=== PATIENT | male | born 1960 | race Caucasian/White ===

== ENCOUNTER 2021-06-30 11:55 | Emergency (ER) | payer OTHER ==
[~2021-06-30 11:55] MED LIST: ALDACTONE25 MG PO; CARVEDILOL12.5 MG PO; CRESTOR40 MG PO; LASIX20 MG PO; PRINIVIL20 MG PO; WARFARIN SODIUM5 MG PO
[2021-06-30 13:18] LABS: BASOPHIL 0.5 % (0-2); HCT 43.5 % (42.0-52.0); HGB 14.8 g/dl (13.2-18.0); LYMPHOCYTE 19.2 % (15-48); MCH 33.9 pg (25.0-31.0); MCV 99.8 fL (78.0-100.0); MONOCYTE 15.6 % (0-12); MPV 9.8 fL (6.0-9.5); NEUTROPHIL 62.8 % (41-80); NRBC 0; PLT 196 K/uL (150-400); RBC 4.36 M/uL (4.70-6.00); WBC 5.8 K/uL (4.0-10.5)
[2021-06-30 13:34] LABS: ALBUMIN 3.4 g/dL (3.4-5.0); BILIRUBIN - TOTAL 0.9 mg/dL (0.2-1.0); BUN/CREAT RATIO (CALC) 23.7 RATIO; CREATININE 0.93 mg/dL (0.67-1.17); GLOBULIN (CALCULATION) 3.7 g/dL; POTASSIUM 4.3 mmol/L (3.5-5.1); TOTAL PROTEIN 7.1 g/dL (6.4-8.2)
== END 2021-06-30 16:03 | disposition home or self-care (01) ==
LOC: FER 11:55
PROVIDERS: Internal Medicine
DX: U07.1 COVID-19 (principal); I25.2 Old myocardial infarction; Z23 Encounter for immunization
CPT/HCPCS: 36415; 71045; 80053; 85025; J7030; M0243; Q0244